=== PATIENT | male | born 1955 | race African-American/Black ===

== ENCOUNTER 2017-05-23 09:46 | Emergency (ER) | payer BC ==
[~2017-05-23] VITALS: Ht 180.3 cm; Wt 103.0 kg
[2017-05-23] MEDS ORDERED: IOHEXOL 350 MG/ML 10 ML VIAL (for RAD DIAG) IVCONTRAST ONE (09:47)
[2017-05-23 09:49] VITALS: BP 198/97; PULSE 93; RESP 14; TEMP 98.4; O2SAT 96
[2017-05-23] MEDS ORDERED: DULA0.5I SQ (10:24)
[2017-05-23] MEDS ORDERED: METF500T PO (10:24)
--- NOTE | 2017-05-23 12:27 | PD ---
HPI Chief Complaint: GI Complaint Time Seen by Provider: 10:13 Travel History International Travel<30 days: No Contact w/Intl Traveler<30days: No Traveled to known affect area: No History of Present Illness HPI 61-year-old male presents to the emergency department complaining of pain during defecation times one week. Says he is passing gas and having small bowel movements that are soft; last bowel movement this morning. Denies hematochezia. Denies abdominal pain, fevers, vomiting, dysuria, testicular pain , testicular swelling. Says he gets rectal pain with coughing also. Had an appointment with his primary care provider today, Dr. Jory Smith, and had to cancel his appointment; says his appointment today was to schedule colonoscopy. Is concerned of the pain so came to the ER. Also concerned because he has family history of colon cancer. Has not taken any medications or tried any treatments to the [facility] symptoms. No known relieving factors. No known allergies. History of hypertension and diabetes type 2. Has no other medical complaints. No other modifying factors or associated signs and symptoms. PFSH Past Medical History Diabetes: Yes Patient Takes Glucophage: Yes Gout: Yes Hypertension: Yes Past Surgical History Other Surgery: Yes (colonoscopies) Social History Alcohol Use: No Tobacco Use: No Substance Use: No Allergies-Medications (Allergen,Severity, Reaction): Coded Allergies: No Known Allergies (Verified Adverse Reaction, Unknown, 05/23/17) Reported Meds & Prescriptions Reported Meds & Active Scripts Active Reported Trulicity Inj (Dulaglutide Inj) 1.5 Mg/0.5 Ml Pen 1.5 Mg SQ Q7D Metformin (Metformin HCl) 500 Mg Tab 500 Mg PO BIDPC Review of Systems Except as stated in HPI: all other systems reviewed are Neg Physical Exam Narrative GENERAL: Well-nourished, well-developed black male patient, in no acute distress ; afebrile, nontoxic-appearing SKIN: Warm and dry. HEAD: Atraumatic. Normocephalic. EYES: Pupils equal and round. No scleral icterus. No injection or drainage. ENT: Mucosa pink and moist. Airway patent. NECK: Trachea midline. CARDIOVASCULAR: Regular rate and rhythm. No murmur appreciated. RESPIRATORY: No accessory muscle use. Clear to auscultation. Breath sounds equal bilaterally. GASTROINTESTINAL: Abdomen soft, non-tender, nondistended. Hepatic and splenic margins not palpable. Bowel sounds are active 4 quadrants. No guarding. Nonrigid. RECTAL EXAM: Exam done in the presence of a nurse. No masses; colon is empty; with tenderness on exam. No visualized external hemorrhoids. MUSCULOSKELETAL: No obvious deformities. No clubbing. No cyanosis. No edema. NEUROLOGICAL: Awake and alert. Oriented 3. No obvious cranial nerve deficits. Motor grossly within normal limits. Normal speech. PSYCHIATRIC: Appropriate mood and affect; insight and judgment normal. Data Data Last Documented VS Vital Signs Date Time Temp Pulse Resp B/P (MAP) Pulse Ox O2 Delivery O2 Flow Rate FiO2 05/23/17 15:42 05/23/17 09:49 98.4 93 14 96 Orders Orders Basic Metabolic Panel (Bmp) (05/23/17 12:32) Complete Blood Count With Diff (05/23/17 12:32) Ct Abd/Pel W Iv Contrast(Rout) (05/23/17 12:32) Iv Access Insert/Monitor (05/23/17 12:32) Sodium Chlor 0.9% 1000 Ml Inj (Ns 1000 M (05/23/17 12:32) Sodium Chloride 0.9% Flush (Ns Flush) (05/23/17 12:45) Iohexol 350 Inj (Omnipaque 350 Inj) (05/23/17 09:47) Ed Discharge Order (05/23/17 15:39) Labs Laboratory Tests Test 05/23/17 12:48 White Blood Count 7.4 TH/MM3 Red Blood Count 5.13 MIL/MM3 Hemoglobin 14.7 GM/DL Hematocrit 44.3 % Mean Corpuscular Volume 86.4 FL Mean Corpuscular Hemoglobin 28.7 PG Mean Corpuscular Hemoglobin Concent 33.2 % Red Cell Distribution Width 14.6 % Platelet Count 174 TH/MM3 Mean Platelet Volume 9.5 FL Neutrophils (%) (Auto) 47.5 % Lymphocytes (%) (Auto) 40.7 % Monocytes (%) (Auto) 7.0 % Eosinophils (%) (Auto) 1.4 % Basophils (%) (Auto) 3.4 % Neutrophils # (Auto) 3.5 TH/MM3 Lymphocytes # (Auto) 3.0 TH/MM3 Monocytes # (Auto) 0.5 TH/MM3 Eosinophils # (Auto) 0.1 TH/MM3 Basophils # (Auto) 0.3 TH/MM3 CBC Comment DIFF FINAL Differential Comment Blood Urea Nitrogen 14 MG/DL Creatinine 0.87 MG/DL Random Glucose 171 MG/DL Calcium Level 9.6 MG/DL Sodium Level 138 MEQ/L Potassium Level 4.0 MEQ/L Chloride Level 103 MEQ/L Carbon Dioxide Level 28.6 MEQ/L Anion Gap 6 MEQ/L Estimat Glomerular Filtration Rate 108 ML/MIN MDM Medical Decision Making Medical Screen Exam Complete: Yes Emergency Medical Condition: Yes Medical Record Reviewed: Yes Differential Diagnosis Rectal mass, malignancy, rectal pain Narrative Course 61-year-old male with rectal pain during bowel movements. With tenderness on NELLA. Denies abdominal pain. Positive family history of colon cancer. Denies hematochezia. I spoke with Dr. Tucker, my attending physician, and she recommends CT abdomen/pelvis. CBC, BMP, CT abdomen/pelvis ordered. I offered the patient pain medication and he declined. 1336: ABC unremarkable. Serum glucose 171, otherwise BMP unremarkable. CT abdomen/pelvis concludes: Abdomen/Pelvis CT 05/23/17 1232 Signed Impressions: Service Date/Time: Tuesday, May 23, 2017 14:22 - CONCLUSION: 1. The appendix is in the upper limits of normal in size without significant inflammatory change. 2. No acute abnormality in the abdomen or pelvis. Leo Jaramillo MD Patient provided a copy of the CT report. Instructed patient to follow up with gastroenterology. Instructed patient to follow up with primary care provider. Patient verbalizes understanding and agreement with treatment plan. Patient is medically cleared and stable for discharge. Discussed reasons to return to the emergency department. Patient agrees with treatment plan. The patients vital signs are stable and the patient is stable for outpatient follow-up and treatment. Patient discharged home, stable and in no acute distress. Diagnosis Primary Impression: Rectal pain Referrals: Rn Lpn [facility] Primary Care Physician Patient Instructions: General Instructions, Rectal Pain (ED) Additional Instructions: Stool softeners as needed and as directed for constipation/hard stool Follow-up with gastroenterology Follow-up with primary care provider Return to the emergency department immediately with worsening of symptoms Med/Other Pt SpecificInfo: No Change to Meds, No Meds Exist/No RX given Disposition: DISCHARGE HOME Condition: Stable Ronda Daniel May 23, 2017 12:27
[2017-05-23] MEDS ORDERED: SODIUM CHLOR 0.9% 1000 ML INJ 1,000 ML IV SCH (12:32)
[2017-05-23] MEDS ORDERED: SODIUM CHLORIDE 0.9% FLUSH 10 ML FLUSH IV FLUSH PRN (12:45)
[2017-05-23 13:17] LABS: AUTOMATED NEUTROPHIL # 3.5 TH/MM3 (1.8-7.7); BASOPHIL # 0.3 TH/MM3 (0-0.2); BASOPHIL % 3.4 % (0.0-2.0); EOSINOPHIL # 0.1 TH/MM3 (0-0.4); EOSINOPHIL % 1.4 % (0.0-4.0); HEMATOCRIT 44.3 % (39.0-51.0); HEMO FLAGS DIFF FINAL; LYMPH % 40.7 % (9.0-44.0); MEAN CELL VOLUME 86.4 FL (80.0-100.0); MEAN CORPUSCULAR HEMOGLOBIN 28.7 PG (27.0-34.0); MEAN CORPUSCULAR HGB CONC 33.2 % (32.0-36.0); NEUT % 47.5 % (16.0-70.0); PLATELET COUNT 174 TH/MM3 (150-450); RED BLOOD COUNT 5.13 MIL/MM3 (4.50-5.90); RED CELL DISTRIBUTION WIDTH 14.6 % (11.6-17.2); WHITE BLOOD COUNT 7.4 TH/MM3 (4.0-11.0)
[2017-05-23 13:35] LABS: BICARBONATE 28.6 MEQ/L (21.0-32.0)
--- NOTE | 2017-05-23 14:53 | RADRPT ---
EXAM DATE/TIME: 05/23/2017 14:22 [facility] COMPARISON: No previous studies available for comparison. INDICATIONS : Diffuse lower abdomen pain for one week, constipation. IV CONTRAST: 69 cc Omnipaque 350 (iohexol) IV ORAL CONTRAST: No oral contrast ingested. RADIATION DOSE: 15.83 CTDIvol (mGy) MEDICAL HISTORY : Hypertension. Diabetes mellitus type 2. Gout. SURGICAL HISTORY : None. ENCOUNTER: Initial ACUITY: 1 week PAIN SCALE: 3/10 LOCATION: Bilateral lower quadrant TECHNIQUE: Volumetric scanning of the abdomen and pelvis was performed. Using automated exposure control and ad justment of the mA and/or kV according to patient size, radiation dose was kept as low as reasonably achievable to obtain optimal diagnostic quality images. DICOM format image data is available electro nically for review and comparison. FINDINGS: LOWER LUNGS: The visualized lower lungs are clear. LIVER: Homogeneous density without lesion. There is no dilation of the biliary tree. No calcified gallston es. SPLEEN: Normal size without lesion. PANCREAS: Within normal limits. KIDNEYS: Normal in size and shape. There is no mass, stone or hydronephrosis. ADRENAL GLANDS: Within normal limits. VASCULAR: There is no aortic aneurysm. BOWEL/MESENTERY: The stomach, small bowel, and colon demonstrate no acute abnormality. Appendix is visualized and is in upper limits of normal in size. There is however air noted within the lumen of the appendix. No si gnificant periappendiceal inflammatory change. There is no free intraperitoneal air or fluid. ABDOMINAL WALL: Within normal limits. RETROPERITONEUM: There is no lymphadenopathy. BLADDER: No wall thickening or mass. REPRODUCTIVE: Within normal limits. INGUINAL: There is no lymphadenopathy or hernia. MUSCULOSKELETAL: Within normal limits for patient age. CONCLUSION: 1. The appendix is in the upper limits of normal in size without significant inflammatory change. 2. No acute abnormality in the abdomen or pelvis. Leo Jaramillo MD on May 23, 2017 at 14:41 Board Certified Radiologist. This report was verified electronically.
== END 2017-05-23 15:57 | disposition home or self-care (01) ==
LOC: NEPD 09:46
DX: K62.89 Other specified diseases of anus and rectum (principal); E11.9 Type 2 diabetes mellitus without complications; I10 Essential (primary) hypertension; M10.9 Gout, unspecified
CPT/HCPCS: 74177; 80048; 85025; 96360; 96361; 99285; J7030; Q9967